=== PATIENT | female | born 1975 | race African-American/Black ===

== ENCOUNTER 2023-09-14 01:33 | Emergency (ER) | payer OTHER ==
[2023-09-14 01:51] VITALS: BP 117/85; PULSE 72; RESP 18; TEMP 97.9; BMI 35.6
[2023-09-14] MEDS ORDERED: ONDANSETRON 4 MG/2 ML VIAL IVPUSH ONE (02:51)
[2023-09-14] MEDS ORDERED: MAG HYDROX/AL HYDROX/SIMETH 30 ML UNIT-DOSE CUP PO ONE (02:51)
[2023-09-14] MEDS ORDERED: ACETAMINOPHEN 1000 MG/100 ML BAG IVPB ONE (02:51)
[2023-09-14] MEDS ORDERED: FAMOTIDINE 20 MG/50 ML IVPB 20 MG/50 ML MG IVPB ONE ×2 (02:51→02:55)
[2023-09-14] MEDS ORDERED: ONDANSETRON 4 MG/2 ML VIAL ONE (02:55)
[2023-09-14] MEDS ORDERED: ACETAMINOPHEN INJECTION 100 ML IVPB ONE (02:55)
[2023-09-14] MEDS ORDERED: MAG HYDROX/AL HYDROX/SIMETH 30 ML UNIT-DOSE CUP ONE (02:55)
== END 2023-09-14 03:13 | disposition home or self-care (01) ==
LOC: JER 01:33
DX: I10 Essential (primary) hypertension (principal); R10.13 Epigastric pain; M54.2 Cervicalgia; R11.0 Nausea
CPT/HCPCS: 93005; 93010; 99283-25

== ENCOUNTER 2024-10-01 03:41 | Emergency (ER) | payer BC, OTHER ==
[2024-10-01 04:16] VITALS: BMI 34.9
[2024-10-01 04:43] LABS: ABSOLUTE IMMATURE GRANULOCYTES 0.01 x10^3/uL (0.0-0.031); BASOPHILS # 0.03 x10^3/uL (0.01-0.08); EOSINOPHIL % 1.9 % (0.7-5.8); EOSINOPHILS # 0.09 x10^3/uL (0.04-0.36); HEMATOCRIT 38.8 % (34.1-44.9); HEMOGLOBIN 12.8 g/dL (11.2-15.7); MEAN CELL VOLUME 87.4 fl (79.4-94.8); MEAN PLT VOLUME 9.5 fl (9.4-12.3); MONOCYTE # 0.41 x10^3/uL (0.24-0.86); MONOCYTE % 8.8 % (4.7-12.5); PLATELET COUNT 236 x10^3/uL (182-369); RDW 12.4 % (12.2-17.1)
[2024-10-01] MEDS ORDERED: ACETAMINOPHEN INJECTION 100 ML ONE (04:50)
[2024-10-01] MEDS ORDERED: MAG HYDROX/AL HYDROX/SIMETH 30 ML UNIT-DOSE CUP ONE (04:50)
[2024-10-01] MEDS ORDERED: ASPIRIN 325 MG TABLET ONE (04:50)
[2024-10-01] MEDS ORDERED: FAMOTIDINE 20 MG/50 ML IVPB 20 MG/50 ML MG IVPB ONE (04:50)
[2024-10-01] MEDS: ACETAMINOPHEN 1000 MG/100 ML BAG IVPB ONE (05:02)
[2024-10-01] MEDS: MAG HYDROX/AL HYDROX/SIMETH 30 ML UNIT-DOSE CUP PO ONE (05:02)
[2024-10-01] MEDS: ASPIRIN 325 MG TABLET PO ONE (05:02)
[2024-10-01] MEDS: FAMOTIDINE 20 MG/50 ML IVPB 20 MG/50 ML MG IVPB ONE (05:03)
[2024-10-01 05:11] LABS: POTASSIUM 4.5 mmol/L (3.5-5.1)
[2024-10-01 05:13] LABS: BLOOD UREA NITROGEN 11.6 mg/dL (7-18)
[2024-10-01 05:16] LABS: CREATININE 0.9 mg/dL (0.55-1.3)
[2024-10-01 05:18] LABS: BILIRUBIN,TOTAL 0.4 mg/dL (0.2-1); TOT PROT 7.9 g/dl (6.4-8.2)
[2024-10-01 09:43] VITALS: BP 131/93; PULSE 54; RESP 19; TEMP 98.6
== END 2024-10-01 09:43 | disposition home or self-care (01) ==
LOC: JER 03:41
PROC: 3E033GC Introduction of Other Therapeutic Substance into Peripheral Vein, Percutaneous Approach (ICD-10-PCS; principal; 2024-10-01)
PROC: 3E033NZ Introduction of Analgesics, Hypnotics, Sedatives into Peripheral Vein, Percutaneous Approach (ICD-10-PCS; 2024-10-01)
DX: K21.9 Gastro-esophageal reflux disease without esophagitis (principal); R07.89 Other chest pain; R20.0 Anesthesia of skin; M54.50 Low back pain, unspecified; R10.13 Epigastric pain; I10 Essential (primary) hypertension
CPT/HCPCS: 36415; 71046-TC-FY; 80053; 84484; 85025; 93005; 93010; 99285-25